=== PATIENT | female | born 1935 | race Caucasian/White ===

== ENCOUNTER → 2021-04-10 | Outpatient (CLI) | payer OTHER, BC ==
--- NOTE | 2021-04-11 13:24 | P ---
[facility] [place] [address] PROCEDURE REPORT Name: GERBER HAND Room #: REG [facility] Tony#: [id number] Admission: 04/10/21 Attend Phys: Wilfredo Sun Discharge: Date of : 39 Report #: [id number] THIS REPORT FOR: cc: King Mixon MD, John L. MD McElhinney, Christian C. MD ~ cc: King Mixon MD DATE OF SERVICE: 04/10/2021 PROCEDURE PERFORMED: Upper endoscopy with biopsies and esophageal dilation. HISTORY OF PRESENT ILLNESS: The patient is an 86-year-old female who underwent EGD with dilation by myself for dysphagia on 02/21/2019 in the upper third of the esophagus at that time a mild narrowing was noted. A small mucosal tear was noted after dilation. She did report improvement for approximately 6 weeks. At that time, she had a video swallow with either failure of relaxation or stricture of the upper esophageal sphincter. She denies any heartburn symptoms. She is not taking any antacids in general. DESCRIPTION OF PROCEDURE: The risks and benefits of the procedure were explained to the patient, those risks including but not limited to bleeding, perforation and the risk of sedation. She understood these risks and gave informed consent. Sedation was given using propofol per anesthesia. Next, using a standard Olympus upper endoscope, the scope was placed in the patient's mouth and advanced under direct vision through the esophagus, stomach and into the second portion of the duodenum. The larynx was normal in appearance. Again, a mild narrowing was noted in the upper esophagus, otherwise normal in the upper esophagus. The mid esophagus was normal. In the distal esophagus at the GE junction, a possible short segment of Rothman's was noted. Biopsies were obtained. Overall, the gastric mucosa was normal. The pylorus was normal and patent. The duodenal bulb, first and second portion were all normal. The scope was then brought back up into the patient's stomach and a Savary guidewire was inserted through the scope as a guidewire was then left in place as the scope was then withdrawn. Next, a 51-Austrian Savary dilation of the esophagus was then performed without difficulty. The dilator was removed. The scope was reintroduced into the patient's esophagus. There were two small mucosal tears noted in the upper esophagus. Therefore, no further dilations were performed. The wire was removed. The scope was withdrawn and the procedure terminated. The patient tolerated the procedure well. IMPRESSION: 1. Mild narrowing in distal esophagus, status post dilation as described above. 2. 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 RECOMMENDATIONS: [address] [address] PROCEDURE REPORT Name: GERBER HAND Room #: REG THERESA Jimenez#: [id number] Admission: 04/10/21 Attend Phys: Wilfredo Sun Discharge: Date of : 39 Report #: [id number] 1. Await biopsy results. 2. Observe the patient post-dilation. 3. If biopsies are positive for Rothman's esophagus, consider long-term daily PPI therapy. Thank you for allowing me to participate in her care. <ELECTRONICALLY SIGNED> By: Wilfredo Joyner MD 04/11/21 1324 [id number] Wilfredo Joyner MD /nt
--- NOTE | 2021-04-16 11:07 | PATH ---
[facility] [address] [place] [address] PATHOLOGY RPT PROCEDURE Name: GERBER HAND CHAMP Room #: REG [facility] M.Manuelito.#: [id number] Admission: 04/10/21 Date of : 39 Discharge: Report #: [id number] Path Case #: [id number] [facility] Accession Number: [id number] . 01 Material submitted: . esophagus - BIOPSY DISTAL ESOPHAGUS RULE OUT BARRETTS. Modifiers: distal . 01 Clinical history: . DTS/EGD/DYSPHAGIA . 02 Diagnosis: Gastroesophageal mucosa, distal esophagus rule out Rothman's, endoscopic biopsy: - Gastric cardia-type mucosa with moderate chronic inflammation. - Squamous mucosa with mild esophagitis. - Negative for dysplasia or malignancy. (IUV/db; 04/15/2021) LBQ 04/15/2021 1754 Local . 02 Electronically signed: . Ruby Marin MD, Pathologist NPI- [id number] . 01 Gross description: . The specimen is received in formalin, labeled "Gerber Hand biopsy distal esophagus". Received is a single segment of pale ponce tissue measuring 0.4 cm in maximum dimensions. The specimen is submitted entirely in cassette A1. ([facility]; 04/12/2021) NRI/NRI 04/12/2021 1531 Local . 02 Pathologist provided ICD-10: K20.90, K29.50 . 02 CPT . 697986 Specimen Comment: A courtesy copy of this report has been sent to [phone], [phone] Specimen Comment: [phone] Specimen Comment: Report sent to / DR GRAVES Performed at: [address] [id number] MD Israel Snowden MD Phone: [phone] Performed at: [address] [id number] [address] [address] PATHOLOGY RPT PROCEDURE Name: GERBER HAND SELFRIDGE Room #: REG THERESA Jimenez#: [id number] Admission: 04/10/21 Date of : 39 Discharge: Report #: [id number] Path Case #: [id number] MD Ruby Marin MD Phone: [phone]
== END | disposition home or self-care (01) ==
LOC: GI 08:51
PROVIDERS: ATTEND Specialist
DX: R13.10 Dysphagia, unspecified (principal); K29.50 Unspecified chronic gastritis without bleeding; K20.90 Esophagitis, unspecified without bleeding; K22.2 Esophageal obstruction; Z98.890 Other specified postprocedural states
CPT/HCPCS: 62110; 62900